=== PATIENT | female | born 1940 | race Caucasian/White ===

== ENCOUNTER → 2016-08-25 | Outpatient (CLI) | payer MEDICARE ==
[~2016-08-25] MED LIST: ASPI1TAB73 PO; CIPR250T52 PO; LEVO75TA3 PO; NITR1CAP37 PO; PROP20TA3 PO; VITA100018 PO; VITA10002 PO
[2016-08-25 12:03] LABS: AUTOMATED NEUTROPHIL # 3.7 TH/MM3 (1.8-7.7); BASOPHIL # 0.1 TH/MM3 (0-0.2); BASOPHIL % 0.9 % (0.0-2.0); EOSINOPHIL # 0.4 TH/MM3 (0-0.4); EOSINOPHIL % 6.8 % (0.0-4.0); HEMATOCRIT 41.6 % (35.0-46.0); HEMO FLAGS DIFF FINAL; LYMPH % 21.5 % (9.0-44.0); LYMPHOCYTE # 1.3 TH/MM3 (1.0-4.8); MEAN CELL VOLUME 87.2 FL (80.0-100.0); MEAN CORPUSCULAR HEMOGLOBIN 29.9 PG (27.0-34.0); MEAN CORPUSCULAR HGB CONC 34.3 % (32.0-36.0); MONO % 10.6 % (0.0-8.0); NEUT % 60.2 % (16.0-70.0); PLATELET COUNT 239 TH/MM3 (150-450); RED BLOOD COUNT 4.78 MIL/MM3 (4.00-5.30); WHITE BLOOD COUNT 6.2 TH/MM3 (4.0-11.0)
[2016-08-25 12:24] LABS: BACTERIA, URINE MOD /hpf; BLOOD, URINE TRACE (NEG); COMMENT (UR) CULTURE INDICATED; CULTURE IF INDICATED CULTURE INDICATED; GLUCOSE,URINE NEG (NEG); KETONE, URINE NEG (NEG); MUCUS URINE FEW /lpf (OCC); NITRITE,URINE NEG (NEG); PH, URINE 6.5 (5.0-8.5); SQUAMOUS EPITHELIAL CELL URINE <1 /hpf (0-5); URINE COLOR YELLOW (YELLW/STRAW)
[2016-08-25 12:25] LABS: ALKALINE PHOSPHATASE 84 U/L (45-117); ALT (GPT) 26 U/L (10-53); ANION GAP 6 MEQ/L (5-15); AST (GOT) 14 U/L (15-37); BICARBONATE 28.6 MEQ/L (21.0-32.0); BLOOD UREA NITROGEN 20 MG/DL (7-18); CHLORIDE 106 MEQ/L (98-107); GLOMERULAR FILTRATION RATE 96 ML/MIN (>89); GLUCOSE,FASTING 85 MG/DL (74-99); POTASSIUM 3.9 MEQ/L (3.5-5.1); SODIUM (NA) 141 MEQ/L (136-145); TOTAL BILIRUBIN ADULT 0.7 MG/DL (0.2-1.0)
--- NOTE | 2016-08-25 16:31 | EKG ---
Date Performed: 08/25/2016 Time Performed: 10:07:08 PTAGE: 75 years EKG: Sinus rhythm MARKED LEFT AXIS DEVIATION POSSIBLE RIGHT VENTRICULAR CONDUCTION DELAY MINIMAL VOLTAGE CRITERIA FOR LVH, CONSIDER NORMAL VARIANT SEPTAL MYOCARDIAL INFARCTION, PROBABLY OLD ABNORMAL ECG NO PREVIOUS TRACING DOCTOR: Arvin Casillas Interpretating Date/Time 08/25/2016 16:30:14
== END ==
LOC: CPRE 09:39
PROVIDERS: ATTEND Obstetrics & Gynecology Gynecology
DX: Z01.810 Encounter for preprocedural cardiovascular examination (principal); Z01.812 Encounter for preprocedural laboratory examination; N81.10 Cystocele, unspecified; R33.9 Retention of urine, unspecified; R94.31 Abnormal electrocardiogram [ECG] [EKG]; B96.1 Klebsiella pneumoniae [K. pneumoniae] as the cause of diseases classified elsewhere
CPT/HCPCS: 36415; 80053; 81001; 85025; 87077; 87086; 87186; 93005

== ENCOUNTER → 2016-09-02 | Day surgery (SDC) | payer MEDICARE ==
--- NOTE | 2016-08-25 10:54 | MH ---
cc: SRIRAM NEVAREZ MD DATE OF ADMISSION: 09/02/2016 DATE OF : 1940 REASON FOR ADMISSION Scheduled for admission on September 02 for cystocele repair. HISTORY OF PRESENT ILLNESS The patient is a 75-year-old white female, 4, para 4 status post prior hysterectomy for pelvic organ prolapse. In the office she has stage II pelvic organ prolapse anterior compartment with some degree of urinary retention with a postvoid residual of 150 cc. The patient has been given options for treatment and opts for surgical intervention. PAST MEDICAL HISTORY 1. Hypertension. 2. Osteoarthritis. 3. Hypothyroidism. MEDICATIONS 1. Propranolol 85 mg q. daily. 2. Synthroid 75 mcg q. daily. ALLERGIES MOTRIN CAUSES A HEADACHE. No rash or other issues associated with non-steroidals. PAST SURGICAL HISTORY Hysterectomy for pelvic organ prolapse [employer] REPAIR HISTORY No STDs or abnormal Pap smears. OB HISTORY Four vaginal deliveries, largest baby 7-1/2 pounds. FAMILY HISTORY Noncontributory. SOCIAL HISTORY She does not smoke, use alcohol or drugs. Good social support. REVIEW OF SYSTEMS Pelvic organ prolapse symptoms manifested mainly by pelvic pressure, discomfort, bulging sensation. Some issues with nocturia. No significant stress incontinence. No chest pain, orthopnea, PND. No nausea, vomiting, fever or chills. No vaginal bleeding or discharge. The remainder of a 14-point review is negative. PHYSICAL EXAMINATION VITAL SIGNS: She is afebrile. Vital signs stable. Blood pressure 170/80. Height 5 feet 6, weight 180, BMI 29.1. GENERAL: The patient is alert and oriented, in no acute distress. No sign of cognitive dysfunction or depression. HEENT: Within normal limits. NECK: Supple. No JVD. CHEST: Clear. HEART: Regular rate and rhythm. ABDOMEN: Soft, nontender. No hepatosplenomegaly. BACK: No CVA tenderness. PELVIC: Exam in the office shows Aa is 0; Ap is -1; point C is -8; genital hiatus is 4; perineal body is 4; total vaginal length is 10. Sacral nerve reflexes are normal. Levator muscle strength is 2/5. Postvoid residual is 150 cc. Further exam under anesthesia. EXTREMITIES: Normal. SKIN: Without rashes. NEUROLOGIC: Nonfocal. No DVT signs. ASSESSMENT AND PLAN Patient with stage II pelvic organ prolapse and some degree of urinary retention. The patient and I discussed options for management and treatment. She is aware of the risks, benefits and alternatives of planned procedure including damage to surrounding organs, bleeding, infection, fistula, retention of urine, need for catheterization, also possibility of de kaly[place] stress incontinence following repair. The patient has made an informed choice to proceed. We will use DVT prophylaxis with sequential compression device and antibiotic prophylaxis with Ancef one gram. The patient's allergy to Motrin is more of a side effect not a true allergy and she has no contraindication to using Toradol perioperatively. I anticipate outpatient procedure. MD DINO Wyman/SHERINE /9:36 AM /10:40 AM
[~2016-09-02] VITALS: Ht 169.2 cm; Wt 81.0 kg
[~2016-09-02] MED LIST changes: +ACETAMINOPHEN 1000 MG/100 ML VIAL IV ONE; +DEXAMETHASONE SOD PHOS 4 MG/ML VIAL ONE; +FAMOTIDINE 20 MG/2 ML VIAL ONE; +FLUORESCEIN SOD 10% SOLN 500 MG/5 ML AMP ONE; +INSULIN HUMAN REGULAR 1,000 UNITS/10 ML VIAL SQ PRN; +KETOROLAC TROMETHAMINE 10 MG TAB PO PRN; +KETOROLAC TROMETHAMINE 30 MG/ML (IVP) VIAL IV PUSH ONE; +KETOROLAC TROMETHAMINE 30 MG/ML (IVP) VIAL IV PUSH PRN; +KETOROLAC TROMETHAMINE 60 MG/2 ML (IM) VIAL IM PRN; +LACTATED RINGER'S 1000 ML IV SCH; +LIDOCAINE 1%/EPINEPHrine 1:100,000 SOLN 30 ML VIAL ONE; +METOPROLOL TARTRATE 25 MG TAB PO PRN; +MIDAZOLAM HCL 2 MG/2 ML VIAL ONE; +ONDANSETRON HCL 4 MG/2 ML VIAL IV PUSH ONE; +ONDANSETRON HCL 4 MG/2 ML VIAL IV PUSH PRN; +PROPOFOL 200 MG/20 ML AMP IV ONE; +SODIUM CHLORID 0.9% 500 ML IV SCH; +ceFAZolin 1,000 MG/NS 100 ML IV SCH; +ePHEDrine/NS 25 MG/5 ML SYR IV ONE; +fentaNYL CITRATE 250 MCG/5 ML AMP ONE
[2016-09-02 08:46] VITALS: BP 155/81; PULSE 66; RESP 18; TEMP 97.9; O2SAT 96
[2016-09-02 13:03] VITALS: BP 156/79; PULSE 58; RESP 18; TEMP 97.9; O2SAT 98
--- NOTE | 2016-09-03 06:48 | MP ---
cc: SRIRAM NEVAREZ MD DATE OF PROCEDURE 09/02/2016 PREOPERATIVE DIAGNOSIS Anterior compartment defect with urinary retention. POSTOPERATIVE DIAGNOSES 1. Anterior compartment defect with urinary retention. 2. Posterior compartment defect. 3. Apical defect. PROCEDURES 1. Anterior repair. 2. Posterior repair with enterocele. 3. Apical suspension coccygeus ligaments bilaterally. 4. Diagnostic cystoscopy. SURGEON MD Prashanth ANESTHESIA Laryngeal mask. WINDOW SYSTEMS ADMINISTRATOR [place] staff x 1. FLUIDS 500 cc crystalloid. URINE OUTPUT 200 cc prior to case. BLOOD LOSS 20 cc. FINDINGS External genitalia poorly estrogenized. POP-Q Score: Aa is 0, Ap is -1. Point C is -1. Total vaginal length is 10. Genital hiatus is 8. Perineal body is 4. Following repair, Aa is -3, Ap is -3. Point C is -8. Total vaginal length is 8. Genital hiatus is 7. Perineal body is 5. Cystoscopy following repair shows normal trigone, good coaptation of urethra. Ureteral orifices patent x 2. Dome and base of bladder are normal. Rectal exam is normal following repair. SPECIMENS Mucosa trimmed but not sent. DRAINS Thompson catheter. ANTIBIOTIC PROPHYLAXIS Ancef 1 gram IV. DVT PROPHYLAXIS Sequential compression device. TIME-OUT PROCEDURE Per protocol. DISPOSITION To Recovery stable. COUNTS Needle, instrument and sponge counts correct. SUMMARY OF INDICATIONS FOR PROCEDURE The patient with symptomatic anterior compartment prolapse with urinary retention of 150 cc. PROCEDURE The patient was taken to the operating theatre, identified, prepped and draped in a fashion appropriate for the planned procedure. She was placed in dorsal lithotomy position with careful attention paid to placement of legs in stirrups to avoid undue stress to sensitive neurovascular structures. Above findings were noted, neurovascular integrity documented. Of note is that the patient's exam showed considerably more posterior and apical descent under anesthesia than we had witnessed in the office. Anterior compartment procedure was instituted. The patient did have methylene blue instilled into the bladder. We made a midline incision from the apex to approximately 1 cm from the urethral meatus with epinephrine-lidocaine solution being instilled first and then reflecting the tissues with sharp dissection. Enterocele was encountered and ligated without complication, anterior repair performed in standard fashion. The vaginal mucosa was trimmed. The mucosa was closed with a running Vicryl suture. We used hemostatic matrix for added reassurance for hemostasis to obviate the need for packing. Following the anterior repair, noticed significant posterior and apical issues. We made a midline incision after infiltrating epinephrine-lidocaine solution from the vaginal introitus to the apex, avoiding the prior suture line. We then reflected the perirectal tissues, still had some enterocele issue below which we repaired in standard fashion with ligation of the enterocele sac, performed plication of the retro-vaginal septum and apical support provided by coccygeus ligament suspension bilaterally. A small amount of vaginal mucosa was trimmed. The vaginal mucosa was closed in a running fashion with Vicryl suture. Hemostatic matrix was used for hemostasis and to obviate the need for packing. The patient received IV fluorescein, 1 cc. We used a 17-[place]erratian bridge and a 70-degree scope. The above findings were noted. Ureteral patency documented. No intrusion suture in the bladder noted. Rectal exam confirmed normal rectum and good repair from the posterior standpoint. The procedure was concluded. No vaginal packing was placed. The Thompson catheter remained. The patient will be discharged from [facility] if she meets criteria and passes voiding trial. MD DINO Wyman/SAMEER /11:31 AM /6:23 AM
== END | disposition home or self-care (01) ==
LOC: HSDC 07:54
PROVIDERS: ATTEND Obstetrics & Gynecology Gynecology
DX: N99.3 Prolapse of vaginal vault after hysterectomy (principal); R33.9 Retention of urine, unspecified; I10 Essential (primary) hypertension; E03.9 Hypothyroidism, unspecified; Z90.710 Acquired absence of both cervix and uterus
CPT/HCPCS: 00942; 57260; 57282; J0131; J0690; J1100; J1885; J2250; J2405; J3010; J7120